=== PATIENT | male | born 1990 | race Hispanic/Latino ===

== ENCOUNTER 2018-02-26 12:55 | Emergency (ER) | payer SELFPAY ==
[2018-02-26 13:21] LABS: BASOPHILS % (AUTO) 0.7 % (0.0-5.0); EOSINOPHILS % (AUTO) 3.5 % (0.0-8.0); HEMATOCRIT 40.3 % (42-54); LYMPHOCYTES % (AUTO) 19.6 % (21.0-51.0); MEAN CORPUSCULAR HEMOGLOBIN 28.9 pg (27.0-33.0); MEAN CORPUSCULAR HGB CONC 35.2 g/dL (32.0-36.0); MONOCYTES % (AUTO) 9.6 % (3.0-13.0); NEUTROPHILS % (AUTO) 66.6 % (40.0-77.0); NUCLEATED RED BLOOD CELLS 0.1 % (0.0-0.19); PLATELET COUNT (AUTO) 227 K/uL (130-400); RED BLOOD CELL COUNT(AUTO) 4.92 MIL/uL (4.50-6.20); RED CELL DISTRIBUTION WIDTH 13.9 % (11.0-15.5); WHITE BLOOD COUNT (AUTO) 8.3 K/uL (4.8-10.8)
[2018-02-26 13:35] LABS: APPEARANCE,URINE Clear (CLEAR); BILIRUBIN,URINE Negative (NEGATIVE); COLOR,URINE Yellow (YELLOW); GLUCOSE, URINE (UA) Negative (NEGATIVE); KETONES,URINE Negative (NEGATIVE); LEUKOCYTE ESTERASE ,URINE Trace (NEGATIVE); NITRATE,URINE Negative (NEGATIVE); OCCULT BLOOD,URINE Trace (NEGATIVE); PROTEIN,URINE Negative (NEGATIVE)
[2018-02-26 13:41] LABS: CREATININE 0.8 mg/dL (0.5-1.5); POTASSIUM 3.5 mmol/L (3.5-5.1)
[2018-02-26 13:46] LABS: ALBUMIN 3.1 g/dL (3.5-5.0); BILIRUBIN,TOTAL 0.6 mg/dL (0.2-1.0); TOTAL PROTEIN, SERUM 7.7 g/dL (6.0-8.3)
[2018-02-26 13:47] LABS: BACTERIA,URINE Rare /HPF (None Seen); RBC,URINE 0-1 /HPF (0-1); SQUAMOUS EPITHELIAL CELL,UR Rare /HPF (0-2)
[2018-02-26 14:17] LABS: AMYLASE 21 U/L (25-115); LIPASE 62 U/L (114-286)
[2018-02-26] MEDS ORDERED: ONDANSETRON HCL MDV 20ML 2 MG/ML VIAL ONE (14:58)
[2018-02-26] MEDS ORDERED: KETOROLAC TROMETHAMINE 30MG/ML ONE (14:59)
[2018-02-26] MEDS ORDERED: SODIUM CHLORIDE 0.9% 1000ML 1,000 ML IV ONE (14:59)
== END 2018-02-26 18:04 | disposition home or self-care (01) ==
LOC: EDH 12:55
DX: R19.7 Diarrhea, unspecified (principal); I10 Essential (primary) hypertension; Z72.0 Tobacco use
CPT/HCPCS: 36415; 74176; 80053; 81001; 82150; 83690; 85025; 96361; 96374; 96375; 99285; J1885; J7030

== ENCOUNTER 2021-11-19 14:38 | Inpatient (IN) | payer SELFPAY ==
[~2021-11-19] VITALS: Ht 190.5 cm; Wt 226.2 kg
[2021-11-19] MEDS ORDERED: ONDANSETRON 4MG INJ IVP ONE (15:30)
[2021-11-19] MEDS ORDERED: ACETAMINOPHEN 500 MG TABLET PO ONE (15:30)
[2021-11-19] MEDS ORDERED: 0.9%NACL 1000ML 1,000 ML IV ONE (15:30)
[2021-11-19 15:35] LABS: BASOPHILS % (AUTO) 0.4 % (0.0-5.0); EOSINOPHILS % (AUTO) 0.4 % (0.0-8.0); HEMATOCRIT 43.7 % (42-54); MEAN CORPUSCULAR HEMOGLOBIN 27.6 pg (27.0-33.0); MEAN CORPUSCULAR HGB CONC 33.2 g/dL (32.0-36.0); MEAN CORPUSCULAR VOLUME 83.2 fL (79-99); MONOCYTES % (AUTO) 5.2 % (3.0-13.0); NEUTROPHILS % (AUTO) 90.4 % (40.0-77.0); PLATELET COUNT (AUTO) 221 K/uL (130-400); RED BLOOD CELL COUNT(AUTO) 5.25 MIL/uL (4.50-6.20); RED CELL DISTRIBUTION WIDTH 13.8 % (11.0-15.5); WHITE BLOOD COUNT (AUTO) 21.4 K/uL (4.8-10.8)
[2021-11-19 15:50] LABS: CREATININE 0.8 mg/dL (0.5-1.5); POTASSIUM 3.8 mmol/L (3.5-5.1)
[2021-11-19 15:55] LABS: ALBUMIN 3.6 g/dL (3.5-5.0); BILIRUBIN,TOTAL 1.7 mg/dL (0.2-1.0); TOTAL PROTEIN, SERUM 8.1 g/dL (6.0-8.3)
[2021-11-19] MEDS ORDERED: CEFTRIAXONE 1G VIAL IVP ONE (16:00)
[2021-11-19 16:08] LABS: B-TYPE NATRIURETIC PEPTIDE 18 pg/mL (0-100)
[2021-11-19 17:33] LABS: APPEARANCE,URINE Clear (CLEAR); BILIRUBIN,URINE Negative (NEGATIVE); COLOR,URINE Dark Yellow (YELLOW); GLUCOSE, URINE (UA) Negative (NEGATIVE); KETONES,URINE Negative (NEGATIVE); LEUKOCYTE ESTERASE ,URINE Trace (NEGATIVE); NITRATE,URINE Negative (NEGATIVE); OCCULT BLOOD,URINE Negative (NEGATIVE); PROTEIN,URINE POS 2+ mg/dL (NEGATIVE)
[2021-11-19 17:40] LABS: BACTERIA,URINE Few /HPF (None Seen); RBC,URINE 0-1 /HPF (0-1); SQUAMOUS EPITHELIAL CELL,UR Few /HPF (0-2); WBC,URINE 0-1 /HPF (0-1)
[2021-11-19 17:41] LABS: MUCUS,URINE Few LPF (None Seen)
[2021-11-19] MEDS ORDERED: LISI40TA9 PO (18:55)
[2021-11-19] MEDS ORDERED: METF-446 PO (18:55)
[2021-11-19] MEDS ORDERED: HYDROCODONE/ACETAMINOPHEN 5/325 MG TAB PO PRN ×2 (19:30)
[2021-11-19] MEDS ORDERED: CEFTRIAXONE 1G VIAL IV SCH (19:30)
[2021-11-19] MEDS ORDERED: GUAIFENESIN-DM 200/20 MG 10 ML PO PRN (19:30)
[2021-11-19] MEDS ORDERED: LACTATED RINGERS IV ONE (19:30)
[2021-11-19] MEDS ORDERED: LACTATED RINGERS 1000ML 1,000 ML IV SCH (19:30)
[2021-11-19] MEDS ORDERED: ACETAMINOPHEN 325 MG TAB PO PRN (19:30)
[2021-11-19] MEDS ORDERED: LACTATED RINGERS 1000ML 1,000 ML IV ONE (19:41)
[2021-11-19] MEDS: INSULIN HUMULIN R 100 UNIT/ML 3ML SQ SCH (21:00)
[2021-11-19] MEDS: DOXYCYCLINE 100MG+NS 250ML 250 ML IV SCH (21:26)
[2021-11-19] MEDS ORDERED: SODIUM CHLORIDE 3% FOR INHALATION 4 ML/AMP VIAL.NEB IH ONE (23:17)
[2021-11-19] MEDS: IPRATROPIUM/ALBUTEROL SULFATE 3 ML SOLUTION IH SCH (23:28)
[2021-11-20] MEDS ORDERED: HYDRALAZINE 20MG/ML VIAL IV ONE (02:30)
[2021-11-20 05:42] LABS: BASOPHILS % (AUTO) 0.4 % (0.0-5.0); EOSINOPHILS % (AUTO) 0.3 % (0.0-8.0); HEMATOCRIT 40.2 % (42-54); LYMPHOCYTES % (AUTO) 3.6 % (21.0-51.0); MEAN CORPUSCULAR HEMOGLOBIN 27.8 pg (27.0-33.0); MEAN CORPUSCULAR HGB CONC 33.1 g/dL (32.0-36.0); MEAN CORPUSCULAR VOLUME 83.9 fL (79-99); MONOCYTES % (AUTO) 5.1 % (3.0-13.0); PLATELET COUNT (AUTO) 185 K/uL (130-400); RED BLOOD CELL COUNT(AUTO) 4.79 MIL/uL (4.50-6.20); RED CELL DISTRIBUTION WIDTH 14.1 % (11.0-15.5); WHITE BLOOD COUNT (AUTO) 20.1 K/uL (4.8-10.8)
[2021-11-20 05:51] LABS: HEMOGLOBIN A1C 6.5 % (4.0-6.0)
[2021-11-20 05:53] LABS: CREATININE 0.8 mg/dL (0.5-1.5); MAGNESIUM 1.4 mg/dL (1.80-2.40); PHOSPHORUS 3.3 mg/dL (2.5-4.9); POTASSIUM 3.7 mmol/L (3.5-5.1)
[2021-11-20] MEDS: IPRATROPIUM/ALBUTEROL SULFATE 3 ML SOLUTION IH SCH ×4 (06:41→23:47)
[2021-11-20] MEDS: INSULIN HUMULIN R 100 UNIT/ML 3ML SQ SCH ×4 (07:30→21:00)
[2021-11-20] MEDS: DOXYCYCLINE 100MG+NS 250ML 250 ML IV SCH (07:56)
[2021-11-20] MEDS: PANTOPRAZOLE 40 MG/VIAL IVP SCH (08:44)
[2021-11-20] MEDS: ENOXAPARIN SODIUM 40 MG/0.4 ML SYRINGE SQ SCH (08:44)
[2021-11-20] MEDS: OSELTAMIVIR PHOSPHATE 75 MG CAP PO SCH ×2 (08:44→21:18)
[2021-11-20] MEDS ORDERED: LISINOPRIL 40 MG TABLET PO SCH (09:00)
[2021-11-20] MEDS ORDERED: MAGNESIUM 2GM PREMIX 50ML 50 ML IV SCH (20:30)
[2021-11-20] MEDS: CEFAZOLIN SODIUM 1 GM VIAL IVP SCH (21:18)
[2021-11-20] MEDS: FUROSEMIDE 20MG VIAL IV SCH (21:18)
[2021-11-21 00:55] VITALS: BP 122/60
[2021-11-21 03:52] VITALS: BP 117/50
[2021-11-21] MEDS: INSULIN HUMULIN R 100 UNIT/ML 3ML SQ SCH ×4 (06:06→21:00)
[2021-11-21] MEDS: CEFAZOLIN SODIUM 1 GM VIAL IVP SCH ×3 (06:10→20:30)
[2021-11-21] MEDS: FUROSEMIDE 20MG VIAL IV SCH ×3 (06:11→20:31)
[2021-11-21] MEDS: IPRATROPIUM/ALBUTEROL SULFATE 3 ML SOLUTION IH SCH ×4 (06:33→23:29)
[2021-11-21 07:20] LABS: HEMATOCRIT 39.6 % (42-54); MEAN CORPUSCULAR HEMOGLOBIN 27.4 pg (27.0-33.0); MEAN CORPUSCULAR HGB CONC 32.1 g/dL (32.0-36.0); MEAN CORPUSCULAR VOLUME 85.3 fL (79-99); RED BLOOD CELL COUNT(AUTO) 4.64 MIL/uL (4.50-6.20); RED CELL DISTRIBUTION WIDTH 14.5 % (11.0-15.5); WHITE BLOOD COUNT (AUTO) 10.6 K/uL (4.8-10.8)
[2021-11-21 09:42] LABS: ALBUMIN 3.1 g/dL (3.5-5.0); BILIRUBIN,TOTAL 1.2 mg/dL (0.2-1.0); CREATININE 0.7 mg/dL (0.5-1.5); POTASSIUM 3.5 mmol/L (3.5-5.1); TOTAL PROTEIN, SERUM 7.8 g/dL (6.0-8.3)
[2021-11-21] MEDS: PANTOPRAZOLE 40 MG/VIAL IVP SCH (10:08)
[2021-11-21] MEDS: LISINOPRIL 10 MG TABLET PO SCH (10:08)
[2021-11-21] MEDS: OSELTAMIVIR PHOSPHATE 75 MG CAP PO SCH ×2 (10:08→20:30)
[2021-11-21] MEDS: ENOXAPARIN SODIUM 40 MG/0.4 ML SYRINGE SQ SCH (10:09)
[2021-11-21 10:33] LABS: CRP QUANTITATIVE 275.2 mg/L (0.00-9.0)
[2021-11-21 11:54] VITALS: BP_SYST 131; BP_SYST 133; BP_DIAS 80; BP_DIAS 81
[2021-11-21 12:44] VITALS: BP 158/84
[2021-11-21 17:00] VITALS: BP 116/66
[2021-11-21 20:00] VITALS: BP 158/102
[2021-11-22] VITALS: BP 146/90
[2021-11-22 04:00] VITALS: BP 136/70
[2021-11-22] MEDS: CEFAZOLIN SODIUM 1 GM VIAL IVP SCH ×3 (04:47→19:42)
[2021-11-22] MEDS: IPRATROPIUM/ALBUTEROL SULFATE 3 ML SOLUTION IH SCH ×3 (06:57→19:16)
[2021-11-22] MEDS: INSULIN HUMULIN R 100 UNIT/ML 3ML SQ SCH ×4 (07:30→21:00)
[2021-11-22 08:00] VITALS: BP 145/73
[2021-11-22] MEDS: LISINOPRIL 10 MG TABLET PO SCH (10:07)
[2021-11-22] MEDS: OSELTAMIVIR PHOSPHATE 75 MG CAP PO SCH ×2 (10:07→19:42)
[2021-11-22] MEDS: PANTOPRAZOLE 40 MG/VIAL IVP SCH (10:07)
[2021-11-22] MEDS: ENOXAPARIN SODIUM 40 MG/0.4 ML SYRINGE SQ SCH (10:08)
[2021-11-22 10:30] LABS: BASOPHILS % (AUTO) 0.8 % (0.0-5.0); EOSINOPHILS % (AUTO) 3.2 % (0.0-8.0); HEMATOCRIT 37.1 % (42-54); LYMPHOCYTES % (AUTO) 20.9 % (21.0-51.0); MEAN CORPUSCULAR HEMOGLOBIN 27.4 pg (27.0-33.0); MEAN CORPUSCULAR HGB CONC 32.9 g/dL (32.0-36.0); MEAN CORPUSCULAR VOLUME 83.4 fL (79-99); NEUTROPHILS % (AUTO) 63.9 % (40.0-77.0); PLATELET COUNT (AUTO) 193 K/uL (130-400); RED BLOOD CELL COUNT(AUTO) 4.45 MIL/uL (4.50-6.20); WHITE BLOOD COUNT (AUTO) 4.9 K/uL (4.8-10.8)
[2021-11-22 10:44] LABS: ALBUMIN 2.9 g/dL (3.5-5.0); BILIRUBIN,TOTAL 0.6 mg/dL (0.2-1.0); CREATININE 0.8 mg/dL (0.5-1.5); CRP QUANTITATIVE 170.8 mg/L (0.00-9.0); POTASSIUM 3.4 mmol/L (3.5-5.1); TOTAL PROTEIN, SERUM 7.7 g/dL (6.0-8.3)
[2021-11-22 12:00] VITALS: BP 146/81
[2021-11-22 16:00] VITALS: BP 158/87
[2021-11-22] MEDS ORDERED: KCL 20 MEQ ERTAB PO SCH (18:30)
[2021-11-22 19:00] VITALS: BP 150/91
[2021-11-22] MEDS: DOXYCYCLINE HYCLATE 100 MG TABLET PO SCH ×2 (19:42→21:00)
[2021-11-22] MEDS ORDERED: ACETAMINOPHEN WITH CODEINE 1 TAB TAB PO PRN (20:00)
[2021-11-23] VITALS: BP 151/81
[2021-11-23] MEDS: IPRATROPIUM/ALBUTEROL SULFATE 3 ML SOLUTION IH SCH ×5 (00:02→23:29)
[2021-11-23 04:00] VITALS: BP 156/76
[2021-11-23] MEDS: CEFAZOLIN SODIUM 1 GM VIAL IVP SCH ×3 (04:12→20:40)
[2021-11-23] MEDS: INSULIN HUMULIN R 100 UNIT/ML 3ML SQ SCH ×4 (05:47→21:00)
[2021-11-23 06:27] LABS: BASOPHILS % (AUTO) 1.2 % (0.0-5.0); HEMATOCRIT 39.4 % (42-54); LYMPHOCYTES % (AUTO) 20.6 % (21.0-51.0); MEAN CORPUSCULAR HEMOGLOBIN 27.4 pg (27.0-33.0); MEAN CORPUSCULAR HGB CONC 31.5 g/dL (32.0-36.0); MONOCYTES % (AUTO) 9.3 % (3.0-13.0); NEUTROPHILS % (AUTO) 63.4 % (40.0-77.0); PLATELET COUNT (AUTO) 217 K/uL (130-400); RED BLOOD CELL COUNT(AUTO) 4.53 MIL/uL (4.50-6.20); RED CELL DISTRIBUTION WIDTH 14.1 % (11.0-15.5)
[2021-11-23 06:49] LABS: ALBUMIN 3.1 g/dL (3.5-5.0); BILIRUBIN,TOTAL 0.7 mg/dL (0.2-1.0); CREATININE 0.7 mg/dL (0.5-1.5); TOTAL PROTEIN, SERUM 7.9 g/dL (6.0-8.3)
[2021-11-23 07:40] VITALS: BP 136/90
[2021-11-23] MEDS: PANTOPRAZOLE 40 MG/VIAL IVP SCH (09:04)
[2021-11-23] MEDS: LISINOPRIL 10 MG TABLET PO SCH (09:04)
[2021-11-23] MEDS: OSELTAMIVIR PHOSPHATE 75 MG CAP PO SCH ×2 (09:04→20:39)
[2021-11-23] MEDS: DOXYCYCLINE HYCLATE 100 MG TABLET PO SCH ×2 (09:04→20:39)
[2021-11-23] MEDS: ENOXAPARIN SODIUM 40 MG/0.4 ML SYRINGE SQ SCH (09:06)
[2021-11-23 12:00] VITALS: BP 131/97
[2021-11-23 16:00] VITALS: BP 147/82
[2021-11-23 21:24] VITALS: BP 113/57
[2021-11-24 00:08] VITALS: BP 144/96
[2021-11-24] MEDS: CEFAZOLIN SODIUM 1 GM VIAL IVP SCH ×3 (01:35→13:30)
[2021-11-24 05:06] VITALS: BP 143/88
[2021-11-24] MEDS: INSULIN HUMULIN R 100 UNIT/ML 3ML SQ SCH ×2 (06:23→11:30)
[2021-11-24] MEDS: IPRATROPIUM/ALBUTEROL SULFATE 3 ML SOLUTION IH SCH ×2 (06:43→11:12)
[2021-11-24 06:52] LABS: BASOPHILS % (AUTO) 1.3 % (0.0-5.0); EOSINOPHILS % (AUTO) 4.4 % (0.0-8.0); HEMATOCRIT 37.9 % (42-54); LYMPHOCYTES % (AUTO) 21.4 % (21.0-51.0); MEAN CORPUSCULAR HEMOGLOBIN 27.7 pg (27.0-33.0); MEAN CORPUSCULAR VOLUME 83.8 fL (79-99); MONOCYTES % (AUTO) 7.4 % (3.0-13.0); NEUTROPHILS % (AUTO) 64.7 % (40.0-77.0); PLATELET COUNT (AUTO) 238 K/uL (130-400); RED BLOOD CELL COUNT(AUTO) 4.52 MIL/uL (4.50-6.20); RED CELL DISTRIBUTION WIDTH 13.9 % (11.0-15.5); WHITE BLOOD COUNT (AUTO) 7.1 K/uL (4.8-10.8)
[2021-11-24 07:41] LABS: CREATININE 0.6 mg/dL (0.5-1.5); CRP QUANTITATIVE 50.6 mg/L (0.00-9.0); POTASSIUM 3.6 mmol/L (3.5-5.1)
[2021-11-24] MEDS: PANTOPRAZOLE 40 MG/VIAL IVP SCH (07:58)
[2021-11-24] MEDS: OSELTAMIVIR PHOSPHATE 75 MG CAP PO SCH (07:58)
[2021-11-24] MEDS: LISINOPRIL 10 MG TABLET PO SCH (07:58)
[2021-11-24] MEDS: DOXYCYCLINE HYCLATE 100 MG TABLET PO SCH (07:58)
[2021-11-24] MEDS: ENOXAPARIN SODIUM 40 MG/0.4 ML SYRINGE SQ SCH (07:59)
[2021-11-24 08:00] VITALS: BP 124/79
[2021-11-24] MEDS ORDERED: DOXY100T2 PO (09:35)
[2021-11-24] MEDS ORDERED: CEFU500T67 PO (09:35)
[2021-11-24] MEDS ORDERED: LISI20TA24 PO (09:35)
[2021-11-24 12:00] VITALS: BP 121/83
== END 2021-11-24 14:50 | disposition home or self-care (01) | DRG 871 ==
LOC: EDH 14:38 → INTOOBSV 14:39 → OBSVTOIN 14:39 → EDHIP 14:39 → 4DH 11-21 00:55
PROVIDERS: ADMIT Internal Medicine; ATTEND Internal Medicine
DX: A41.9 Sepsis, unspecified organism (principal); J12.9 Viral pneumonia, unspecified; J10.08 Influenza due to other identified influenza virus with other specified pneumonia; Z68.44 Body mass index [BMI] 60.0-69.9, adult; L03.116 Cellulitis of left lower limb; Z20.822 Contact with and (suspected) exposure to COVID-19; E11.9 Type 2 diabetes mellitus without complications; I10 Essential (primary) hypertension; E66.9 Obesity, unspecified; Z87.891 Personal history of nicotine dependence; Z79.82 Long term (current) use of aspirin; Z79.4 Long term (current) use of insulin; Z79.899 Other long term (current) drug therapy
CPT/HCPCS: 36415; 71045; 80048; 80053; 81001; 82948; 83036; 83605; 83735; 83880; 84100; 84145; 84484; 85025; 85027; 85378; 85651; 86140; 87040; 87071; 87088; 87205; 87635; 87804; 93005; 93970; 94640; 94664; C9113; C9803; G0378; J0690; J0696; J1650; J1940; J2405; J3475; J3490; J7030; J7120

== ENCOUNTER 2025-07-17 22:49 | Emergency (ER) | payer BC, OTHER ==
[~2025-07-17] VITALS: Ht 190.5 cm; Wt 225.0 kg
[~2025-07-17 22:49] MED LIST: LISI20TA24 PO; METF-446 PO
--- NOTE | 2025-07-17 23:14 | ERN ---
ED Note History of Present Illness Stated Complaint: C/O CHEST TIGHTNESS W/ SOB Chief Complaint: Shortness of Breath Time Seen by MD: 23:03 Time Seen by Midlevel: 23:04 Dictation: 34-year-old male presents to the emergency department due to report of having multiple episodes of fluttering and palpitations that has been going off and on since yesterday. The patient states that they do not have a specific pattern. He states that when it does occur he feels like he can not catch his breath. The patient states that he does have a history of hypertension but has not taken his prescribed lisinopril for the past 2 years. Currently, he denies having any fever, chills, runny nose or sore throat. The patient states that upon occasions he does have a mild dry cough. Upon initial evaluation, the patient presents in no acute respiratory distress. Allergies: Coded Allergies: No Known Allergies (Unverified Allergy, Unknown, 11/19/21) Emergency Care PIT SUPERVISOR: None Home Meds Active Scripts Lisinopril (Lisinopril) 20 Mg Tablet, 20 MG PO DAILY for 30 Days, #30 TAB 1 Refill Prov:GHULAM ROGERS Jr., MD 11/24/21 Reported Medications Metformin HCl (Metformin HCl) 1,000 Mg Tablet, 1000 MG PO DAILY, TAB 11/19/21 Past Medical History Past Medical History: Hypertension Additional Past Medical Hx: CELLULITIS Surgical History: None Surgical History Other: CHARLES SHOULDER, CARPAL TUNNEL RT WRIST PSYCH History: no pertinent psych hx Family History: Negative Social History: Negative, Lives with family RN Note Reviewed/Agreed w/PFSH: Yes Review of System Dictation Cardiovascular: Palpitations Respiratory: Shortness breath Initial Vital Sign VS Vital Signs Date Time Temp Pulse Resp B/P (MAP) Pulse Ox O2 Delivery O2 Flow Rate FiO2 07/17/25 22:52 97.9 76 24 242/160 95 Room Air 07/17/25 23:42 0 21 Physical Exam Dictation General: awake, alert, NAD Head/Face: Normocephalic, atraumatic Eyes: PERRL, EOMI ENT: Oral mucosa moist Neck: Trachea midline, supple Cardiovascular: RRR, 1+ pitting edema of both lower extremities pretibial down Respiratory: Symmetrical, non-labored Abdomen: Soft, non-tender, non-distended, no guarding. Skin: Warm, dry, good turgor, no rash MS/Extremity: Pulses equal, no cyanosis, neurovascular intact, FROM Neuro: COAx4, GCS 15, steady gait, Psych: Normal behavior, mood, and affect normal Results (Laboratory/Radiology) Laboratory/Radiology Laboratory Tests Test 07/17/25 23:07 07/17/25 23:39 07/18/25 01:25 Urine Color LIGHT-YELLOW (YELLOW) Urine Appearance CLEAR (CLEAR) Urine pH 6.0 (5.0-8.0) Urine Specific [place] 1.023 (1.001-1.031) Urine Protein 200 mg/dL (NEGATIVE) H Urine Glucose (UA) NEGATIVE mg/dL (NEGATIVE) Urine Ketones NEGATIVE mg/dL (NEGATIVE) Urine Occult Blood SMALL (NEGATIVE) H Urine Nitrate NEGATIVE (NEGATIVE) Urine Bilirubin NEGATIVE mg/dL (NEGATIVE) Urine Urobilinogen 0.2 mg/dL (0.2-1.0) Urine Leukocyte Esterase NEGATIVE Dung/uL Urine RBC 2-5 /HPF (0-1) H Urine WBC 2-5 /HPF (0-1) H Urine Squamous Epithelial Cells RARE /HPF (0-2) Urine Bacteria RARE /HPF (None Seen) Urine Opiates Screen NEGATIVE (NEGATIVE) Urine Barbiturates Screen NEGATIVE (NEGATIVE) Urine Phencyclidine Screen NEGATIVE (NEGATIVE) Urine Amphetamines Screen NEGATIVE (NEGATIVE) Urine Benzodiazepines Screen NEGATIVE (NEGATIVE) Urine Cocaine Screen NEGATIVE (NEGATIVE) Urine Marijuana (THC) Screen NEGATIVE (NEGATIVE) White Blood Count 7.5 K/uL (4.8-10.8) Red Blood Count 5.13 MIL/uL (4.50-6.20) Hemoglobin 14.3 g/dL (14.0-18.0) Hematocrit 41.8 % (42-54) L Mean Corpuscular Volume 81.5 fL (79-99) Mean Corpuscular Hemoglobin 27.9 pg (27.0-33.0) Mean Corpuscular Hemoglobin Concent 34.2 g/dL (32.0-36.0) Red Cell Distribution Width 13.7 % (11.0-15.5) Platelet Count 248 K/uL (130-400) Mean Platelet Volume 11.1 fL (7.5-10.5) H Immature Granulocyte % (Auto) 0.4 % (0-1) Neutrophils (%) (Auto) 55.3 % (40.0-77.0) Lymphocytes (%) (Auto) 30.8 % (21.0-51.0) Monocytes (%) (Auto) 8.5 % (3.0-13.0) Eosinophils (%) (Auto) 4.1 % (0.0-8.0) Basophils (%) (Auto) 0.9 % (0.0-5.0) Neutrophils # (Auto) 4.1 K/uL (1.8-7.7) Lymphocytes # (Auto) 2.3 K/uL (1.0-4.8) Monocytes # (Auto) 0.6 K/uL (0.1-1.0) Eosinophils # (Auto) 0.31 K/uL (0.00-0.70) Basophils # (Auto) 0.07 K/uL (0.00-0.20) Absolute Immature Granulocyte (auto 0.03 K/uL (0-1) Nucleated Red Blood Cells 0.0 % (0.0-0.19) Sodium Level 140 mmol/L (136-145) Potassium Level 3.0 mmol/L (3.5-5.1) *L Chloride Level 104 mmol/L (101-111) Carbon Dioxide Level 29 mmol/L (21-32) Blood Urea Nitrogen 9 mg/dL (7-18) Creatinine 0.7 mg/dL (0.5-1.3) Glomerular Filtration Rate Calc 124 mL/min (>90) Random Glucose 117 mg/dL (70-105) H Total Calcium 8.7 mg/dL (8.5-10.1) Magnesium Level 1.60 mg/dL (1.80-2.40) L Total Bilirubin 0.7 mg/dL (0.2-1.0) Direct Bilirubin 0.2 mg/dL (0.0-0.3) Aspartate Amino Transf (AST/SGOT) 40 U/L (10-37) H Alanine Aminotransferase (ALT/SGPT) 61 U/L (12-78) Alkaline Phosphatase 90 U/L (50-136) Total Creatine Kinase 450 U/L (21-232) *H Troponin I High Sensitivity 25 ng/L (4-75) 29 ng/L (4-75) B-Type Natriuretic Peptide 38 pg/mL (0-100) Total Protein 7.6 g/dL (6.0-8.3) Albumin 3.2 g/dL (3.5-5.0) L Labs Reviewed?: Yes EKG: (+) NSR, (+) rhythm EKG Comment: Ventricular rate 70 beats per minute AK 168 MS QRS 111 MS QT 407 MS No STEMI. X-RAY Comment: Chest x-ray one view with mild cardiomegaly as interpreted by me and verified by the radiologist. ED Course ED Course Orders Procedure Category Date Status Time Vital Signs Per CPOE 07/17/25 Transmitted Routine 23:00 Chest 1vw RAD 07/17/25 Resulted 23:00 12 Lead Ekg Tracing- EKG 07/17/25 Logged Technical 23:00 Oxygen By Nc/Pulse Ox CPOE 07/17/25 Transmitted 23:00 Maintain Iv CPOE 07/17/25 Transmitted 23:00 Iv Insertion CPOE 07/17/25 Transmitted 23:00 Cardiac Monitoring CPOE 07/17/25 Transmitted 23:00 Pulse Oximetry With CPOE 07/17/25 Transmitted Vs And Prn 23:00 Cbc With Differential LAB 07/17/25 Complete 23:00 Activity: Br W/Brp CPOE 07/17/25 Transmitted With Assist 23:00 Creatine Kinase, Total LAB 07/17/25 Complete 23:00 Troponin I High LAB 07/17/25 Complete Sensitivity 23:00 Urinalysis Profile LAB 07/17/25 Complete 23:00 Basic Metabolic Panel LAB 07/17/25 Complete 23:00 Aspirin 325mg Tab PHA 07/17/25 Complete (Aspirin 325mg Tab) 23:00 Hydralazine 20mg Inj PHA 07/17/25 Complete (Apresoline 20mg In 23:00 Drug Screen Urine LAB 07/17/25 Complete 23:06 B-Type Natriuretic LAB 07/17/25 Complete Peptide 23:10 Hepatic Function Panel LAB 07/17/25 Complete 23:39 Magnesium LAB 07/17/25 Complete 23:39 Potassium Bicarb/Cit PHA 07/18/25 Complete Ac 25meq (K-Lyte Ta 01:00 Troponin I High LAB 07/18/25 Complete Sensitivity 01:15 Current Medications Medications (Trade) Dose Ordered Sig/Kavya Route PRN Reason Start Time Stop Time Status Last Admin Dose Admin Aspirin (Aspirin 325mg Tab) 325 mg ONCE ONCE PO 07/17/25 23:00 07/17/25 23:05 DC 07/17/25 23:59 Hydralazine HCl (APRESOLine 20MG INJ) 15 mg ONCE ONCE IV 07/17/25 23:00 07/17/25 23:05 DC 07/17/25 23:59 Potassium Bicarbonate (K-Lyte Tablet Eff 25 Meq Tablet.eff) 50 meq ONCE ONCE PO 07/18/25 01:00 07/18/25 01:01 DC 07/18/25 01:08 Vital Signs Date Time Temp Pulse Resp B/P (MAP) Pulse Ox O2 Delivery O2 Flow Rate FiO2 07/18/25 01:25 71 16 176/77 97 Room Air* 0 21 07/17/25 23:42 98.4 78 18 176/110 98 Room Air* 0 21 07/17/25 22:52 97.9 76 24 242/160 95 Room Air HEART Score Response (Comments) Value History: Low suspicion (0) 0 EKG: Normal 0 Age: < 45yrs (0) 0 Risk Factors: 1-2 risk factors (+1) 1 Initial Troponin: Normal limit (0) 0 HEART Score Risk: Low Risk for MACE (1-3) Total 1 Medical Decision Making MDM MDM: Differential diagnosis: STEMI, non STEMI, palpitations, electrolyte imbalance. Rationale: Tests considered and ordered secondary to shared decision making include: Previous outside records reviewed: Old ER visits. Risk of complication and/or morbidity or mortality of patient management: None Medications-Per medication reconciliation Need for hospitalization: Patient does not meet criteria for hospitalization. Need for emergency major/minor surgery: No There are no social concerns with this patient. Prescription drug management Prescriptions will include symptomatic care Patient's prior external medical records from other ER visits were reviewed by me as indicated. Prior testing and results from previous visits were reviewed. Prior tests were taken into account with medical decision making and resource utilization, independent historian/historians were used to obtain complete medical history. I independently interpreted the test that were performed, results were reviewed by me and considered findings on radiology if ordered. Medical management and examination interpretation discussions were had by me with other qualified healthcare professionals as indicated for the patient's care. DX & DISP Disposition: Discharge Departure Impression: Primary Impression: Palpitations Additional Impression: Acute hypokalemia Condition: Stable Referrals: PRIYANK LERMA MD (PCP) Time of Disposition: 01:55 GHULAM DE LA CRUZ Jul 17, 2025 23:14
[2025-07-17 23:20] LABS: APPEARANCE,URINE CLEAR (CLEAR); GLUCOSE, URINE (UA) NEGATIVE (NEGATIVE); LEUKOCYTE ESTERASE ,URINE NEGATIVE Leu/uL (NEGATIVE); NITRATE,URINE NEGATIVE (NEGATIVE); OCCULT BLOOD,URINE SMALL (NEGATIVE)
[2025-07-17 23:23] LABS: ADD UA MICROSCOPIC YES
[2025-07-17 23:28] LABS: SQUAMOUS EPITHELIAL CELL,UR RARE /HPF (0-2)
[2025-07-17 23:47] LABS: IMMATURE GRANULOCYTE ABSOLUTE 0.03 K/uL (0-1); NUCLEATED RED BLOOD CELLS 0.0 % (0.0-0.19); PLATELET COUNT (AUTO) 248 K/uL (130-400); RED BLOOD CELL COUNT(AUTO) 5.13 MIL/uL (4.50-6.20); RED CELL DISTRIBUTION WIDTH 13.7 % (11.0-15.5); WHITE BLOOD COUNT (AUTO) 7.5 K/uL (4.8-10.8)
--- NOTE | 2025-07-17 23:48 | HMCIMG ---
EXAM: CR Chest, 1 view CLINICAL HISTORY: Chest pain. COMPARISON: None provided. FINDINGS: The lungs show no infiltrates or other acute findings. No pleural effusion or pneumothorax. Mild cardiomegaly. No acute osseous abnormality. IMPRESSION: Mild cardiomegaly. No acute infiltrate, effusion, or pneumothorax. /[place]
[2025-07-17] MEDS: ASPIRIN 325MG TAB PO ONE (23:59)
[2025-07-18 00:18] LABS: ASPARTATE AMINOTRANSFERASE 40.0 U/L (10-37); CREATININE 0.7 mg/dL (0.5-1.3); GLOMERULAR FILTR. RATE CALC 124.0 mL/min (>90); GLUCOSE,RANDOM 117.0 mg/dL (70-105); SODIUM SERUM 140.0 mmol/L (136-145); TOTAL PROTEIN, SERUM 7.6 g/dL (6.0-8.3); UREA NITROGEN, BLOOD 9.0 mg/dL (7-18)
[2025-07-18 00:21] LABS: CREATINE KINASE, TOTAL 450.0 U/L (21-232)
[2025-07-18 00:50] LABS: AMPHET/METH SCREEN,URINE NEGATIVE (NEGATIVE); BARBITURATE SCREEN, URINE NEGATIVE (NEGATIVE); CANNABINOID SCREEN,URINE NEGATIVE (NEGATIVE); COCAINE SCREEN,URINE NEGATIVE (NEGATIVE)
[2025-07-18 02:43] VITALS: BP 172/74; PULSE 72; RESP 16; TEMP 98.4; O2SAT 97
--- NOTE | 2025-07-18 02:46 | EKG ---
[facility] Test Date: 2025-07-17 Test Time: 22:50:51 Pat Name: LYLY SHEETS Department: [facility] Room: Gender: M Chronic Specialist: 08 : 1990 Requested By: ALESSIA SIGALA Order Number: [id number] Reading MD: Alonzo Braun Measurements Intervals [place] Rate: 70 P: 8 MD: 168 QRS: -27 QRSD: 111 T: 82 QT: 407 QTc: 440 Interpretive Statements Sinus rhythm Compared to ECG 11/20/2021 09:44:17 Atrial premature complex(es) no longer present Electronically Signed On 07-18-2025 14:41:30 CDT by Alonzo Braun Please click the below link to view image of tracing.
== END 2025-07-18 02:49 | disposition home or self-care (01) ==
LOC: EDH 22:49
DX: R00.2 Palpitations (principal); E87.6 Hypokalemia; I10 Essential (primary) hypertension; Z79.84 Long term (current) use of oral hypoglycemic drugs; Z79.899 Other long term (current) drug therapy
CPT/HCPCS: 99285; 96374; 71045; 82550; 80076; 83735; 84484 ×2; 80048; 83880; 80305; 85025; 36415; 93005; 81001; J0360